=== PATIENT | male | born 1975 | race Caucasian/White ===

== ENCOUNTER 2017-03-22 10:57 | Emergency (ER) | payer OTHER ==
[2017-03-22] MEDS ORDERED: Nitroglycerin 2% Ointment 1 INCH/1 GM Packet ONE (11:18)
[2017-03-22 11:29] LABS: #Eosinphils 0.1 thou/uL (0.0-0.7); #Lymphocytes 1.9 thou/uL (1.20-3.40); #Monocytes 0.5 thou/uL (0.11-0.59); #Neutrophils 4.5 thou/uL (1.40-6.50); %Basophils 0.6 % (0.0-1.0); %Eosinophils 1.9 % (0.0-10.0); %Lymphocytes 26.4 % (21.0-51.0); %Monocytes 6.5 % (0.0-10.0); Hematocrit 52.7 % (42.0-52.0); Mean Platelet Volume 8.5 fL (7.4-10.4)
[2017-03-22 11:31] LABS: PTT 27.1 SEC (22.9-36.1); Prothrombin Time 12.2 SEC (12.0-14.7)
--- NOTE | 2017-03-22 11:39 | RAD ---
AP VIEW OF THE CHEST: INDICATIONS: Chest pain. Left arm tingling. COMPARISON: Prior exam dated 05/13/2010. IMPRESSION: No acute cardiopulmonary abnormality. The examination is not appreciably changed from the comparison examination. POS: [facility]
[2017-03-22 11:52] LABS: ALT (SGPT) 30 U/L (8-55); AST (SGOT) 17 U/L (5-34); Alkaline Phosphatase 101 U/L (40-150); Anion Gap 13 mmol/L (10-20); BUN (Urea Nitrogen) 11 mg/dL (8.9-20.6); Bilirubin, Total 0.4 mg/dL (0.2-1.2); CK (CPK) 61 U/L (30-200); Calc. Creatinine Clearance 0 mL/min (70-130); Calcium 9.7 mg/dL (7.8-10.44); Carbon Dioxide 30 mmol/L (22-29); Chloride 102 mmol/L (98-107); Estimated GFR-MDRD 82; Globulin 3.3 g/dL (2.4-3.5); Lipase 5 U/L (8-78); Protein, Total 7.9 g/dL (6.0-8.3)
[2017-03-22 11:53] LABS: Digoxin Less than 0.15 ng/mL (0.8-2.0)
[2017-03-22 11:58] LABS: Troponin I Less than 0.010 ng/mL (< 0.028)
== END 2017-03-22 13:22 | disposition home or self-care (01) ==
LOC: ERS 10:57
DX: R07.9 Chest pain, unspecified (principal); I10 Essential (primary) hypertension; E03.9 Hypothyroidism, unspecified; E10.9 Type 1 diabetes mellitus without complications; Z79.899 Other long term (current) drug therapy
CPT/HCPCS: 71010; 80053; 80162; 82553; 83690; 84484; 85025; 85610; 85730; 93005

== ENCOUNTER 2017-06-10 16:52 | Inpatient (IN) | payer OTHER ==
[2017-06-10 19:14] LABS: #Lymphocytes 1.4 thou/uL (1.20-3.40); #Monocytes 0.5 thou/uL (0.11-0.59); #Neutrophils 5.9 thou/uL (1.40-6.50); %Basophils 0.1 % (0.0-1.0); %Eosinophils 0.2 % (0.0-10.0); %Lymphocytes 17.7 % (21.0-51.0); %Monocytes 6.9 % (0.0-10.0); %Neutrophils 75.1 % (42.0-75.0); Hemoglobin 16.1 g/dL (14.0-18.0); Mean Corpuscular HGB CONC 34.2 g/dL (32.0-36.0); Mean Corpuscular Hemoglobin 30.5 pg (27.0-31.0); Mean Platelet Volume 9.9 fL (7.4-10.4); Platelet Count 169 thou/uL (130-400); RBC Distribution Width 11.4 % (11.5-14.5); Red Blood Cell (RBC) Count 5.29 mill/uL (4.70-6.10); White Blood Cell (WBC) Count 7.8 thou/uL (4.8-10.8)
[2017-06-10 19:17] LABS: Base Excess-Venous 1.9 mmol/L (-30.0-30.0); Bicarbonate (HCO3v) 26.4 mmol/L (1.0-85.0); Calcium, Ionized 0.96 mmol/L (1.12-1.32); Hemoglobin - Calc 16.6 g/dL (12.0-18.0); Potassium 4.6 mmol/L (3.4-4.7); T. Carbon Dioxide 27.6 mmol/L (1.0-85.0); pH (Venous) 7.427 (7.35-7.45); vO2 Saturation-calc 92.6 % (0.0-100.0)
--- NOTE | 2017-06-10 19:26 | RAD ---
PORTABLE AP CHEST X-RAY 06/10/17 HISTORY: Cough. COMPARISON: 03/22/17. FINDINGS: The cardiac silhouette and pulmonary vasculature are within normal limits for the portable technique of the study. The lungs are clear. Osseous structures are intact. IMPRESSION: No acute cardiopulmonary process. POS: [facility]
[2017-06-10 19:39] LABS: ALT (SGPT) 16 U/L (8-55); AST (SGOT) 12 U/L (5-34); Albumin 3.9 g/dL (3.5-5.0); Alkaline Phosphatase 72 U/L (40-150); Anion Gap 15 mmol/L (10-20); BUN (Urea Nitrogen) 10 mg/dL (8.9-20.6); Bilirubin, Total 0.6 mg/dL (0.2-1.2); Calc. Creatinine Clearance 0 mL/min (70-130); Calcium 8.8 mg/dL (7.8-10.44); Carbon Dioxide 24 mmol/L (22-29); Chloride 102 mmol/L (98-107); Estimated GFR-MDRD Greater than 90; Globulin 3.2 g/dL (2.4-3.5); Glucose 164 mg/dL (70-105); Potassium 3.8 mmol/L (3.5-5.1); Protein, Total 7.1 g/dL (6.0-8.3); Sodium 137 mmol/L (136-145)
[2017-06-10] MEDS ORDERED: Azithromycin 500 MG in Sodium Chloride 0.9% 250 ML 250 ML IVPB SCH (20:30)
[2017-06-10] MEDS ORDERED: Ondansetron HCl/PF 4 MG/2 ML Vial IVP PRN ×2 (21:35→23:54)
[2017-06-10] MEDS ORDERED: Acetaminophen 325 MG TAB PO PRN ×2 (21:35→23:54)
[2017-06-10] MEDS ORDERED: Ondansetron ODT 4 MG TAB SL PRN (21:35)
[2017-06-10 22:20] VITALS: BMI 28.2
[2017-06-10] MEDS ORDERED: Oseltamivir 75 MG CAP PO SCH (23:30)
[2017-06-10] MEDS ORDERED: cefTRIAXone\\ROCEPHIN 1 GM in Sodium Chloride 0.9% 100 ML IVPB SCH (23:45)
[2017-06-10] MEDS ORDERED: HYDROcodone/Acetaminophen 5/325 mg Tablet PO PRN (23:54)
[2017-06-10] MEDS ORDERED: Mag-Al 1200 mg/1200 mg/30 ML UDCUP PO PRN (23:54)
[2017-06-10] MEDS ORDERED: Milk Of Magnesia 30 ML UDCUP PO PRN (23:54)
[2017-06-10] MEDS ORDERED: Senokot 8.6 MG TAB PO PRN (23:54)
[2017-06-10] MEDS ORDERED: HumaLOG 300 UNITS/3 ML VIAL SC PRN ×2 (23:57)
[2017-06-10] MEDS ORDERED: Dextrose 5% in Water 1,000 ML IV PRN (23:57)
[2017-06-10] MEDS ORDERED: Dextrose 50% Abboject 50 ML SYRINGE SLOW IVP PRN (23:57)
[2017-06-11] MEDS: Benzonatate 100 MG CAP PO PRN ×5 (00:26→19:47)
[2017-06-11] MEDS: Sodium Chloride 0.9% 1,000 ML IV SCH ×3 (00:27→19:53)
--- NOTE | 2017-06-11 02:59 | HP ---
DATE OF SERVICE: 06/10/2017 PRIMARY CARE PHYSICIAN: Yuli Gómez MD REASON FOR ADMISSION: Acute bronchitis. HISTORY OF PRESENT ILLNESS: A 41-year-old male with a history of diabetes, hypertension, gastroesoph ageal reflux disease, and hypothyroidism who presented to emergency room for evaluation of fever. Layton mendez reports that in his family, patient's daughter got sick and he was having flu-like illness and subsequently he got sick and he was also experiencing flu-like illness. On Tuesday, he was diagnosed with influenza A and he was started on Tamiflu. Tomorrow morning, he will finish his Tamiflu course. Despite Tamiflu taking, he was having on and off fever. Patient saw his primary care physician aga in a couple of days ago. At that time, patient was given a dose of Rocephin and he was instructed th at if he gets fever, then he needs to go to emergency room. Today, he was having high-grade fever wi th chills, body ache, and headache. He was feeling fatigue and that is why he decided to come to the emergency room for evaluation. In the emergency room, this patient had chest x-ray, which did not s how any acute process and routine blood test was unremarkable. Patient denies any UTI symptoms. He denies any constipation, diarrhea, melena, or hematochezia. He does have dry cough. Patient also has cough with deep breathing. Patient denies any pleurisy. Marci ent denies any chest pain, palpitation, or dizziness. He denies any diarrhea, nausea, or vomiting. He denies any sore throat. He denies any hoarseness of voice. He denies any headache. ALLERGIES: No known drug allergy. CURRENT HOME MEDICATIONS: Synthroid 100 mcg p.o. daily, Tamiflu 75 mg p.o. b.i.d., Diovan 80 mg p.o. daily, Humalog insulin as per sliding scale, Tresiba 30 units subcu daily, Dexilant 60 mg p.o. daily . REVIEW OF SYSTEMS: The following complete review of systems was negative, unless otherwise mentioned in the HPI or below: Constitutional: Weight loss or gain, ability to conduct usual activities. Sk in: Rash, itching. Eyes: Double vision, pain. ENT/Mouth: Nose bleeding, neck stiffness, pain, te nderness. Cardiovascular: Palpitations, dyspnea on exertion, orthopnea. Respiratory: Shortness of breath, wheezing, cough, hemoptysis, fever or night sweats. Gastrointestinal: Poor appetite, abdom inal pain, heartburn, nausea, vomiting, constipation, or diarrhea. Genitourinary: Urgency, frequenc y, dysuria, nocturia. Musculoskeletal: Pain, swelling. Neurologic/Psychiatric: Anxiety, depressio n. Allergy/Immunologic: Skin rash, bleeding tendency. Please my HPI for pertinent positive and neg ative. PAST MEDICAL HISTORY: Diabetes type 2, hypertension, hypothyroidism, gastroesophageal reflux disease . PAST SURGICAL HISTORY: [place] teeth removal, left fifth digit surgery, tonsillectomy, vasectomy, alejandro noidectomy. PAST PSYCHIATRIC HISTORY: Reviewed and negative. SOCIAL HISTORY: Patient lives at home with his . No history of tobacco, alcohol, or illicit ranjana g abuse. FAMILY HISTORY: No strong family history of premature coronary artery disease, stroke, or cancer. EMERGENCY ROOM COURSE: Patient is given Rocephin, azithromycin, IV fluid. PHYSICAL EXAMINATION: VITAL SIGNS: On arrival, blood pressure 113/70, pulse 105, respiratory rate 18, temperature 99.4, sa turation 98% on room air, weight 78.4 kilograms. GENERAL: Patient is currently alert, awake, in no obvious acute distress. HEAD: Normocephalic, atraumatic. EYES: Pupils round, reactive to light. Extraocular muscle intact. ENT: Oropharynx within normal limit. Moist mucous membranes. No oral lesion, no pharyngeal erythem a, no exudate. NECK: Supple. No JVD, no thyromegaly, no carotid bruit, no jugular venous distention. LUNGS: Left-sided few basal rales noted. No wheeze, no rhonchi, no accessory muscles of respiration in use. CARDIAC: S1, S2 regular. No murmur, no gallop, no rub. ABDOMEN: Soft, bowel sounds present, nontender, nondistended. No organomegaly, no mass, no suprapub ic tenderness. BACK: Unremarkable. No CVA tenderness. EXTREMITIES: Upper extremity: Passive movement of all joints are normal. Lower extremities: No ed terra. Good peripheral pulsation. SKIN: No skin rash. HEMATOLOGIC: No lymphadenopathy. NEUROLOGIC: Nonfocal examination. SIGNIFICANT LABORATORY DATA: CBC, WBC 7.8, hemoglobin 16.1, platelet 169,000. VBG, pH 7.42, bicarbo jessica 26.4, CO2 of 40, O2 of 64. BMP, sodium 137, potassium 3.8, chloride 102, carbon dioxide 24, BUN 10, creatinine 0.81. Glucose 164, calcium 8.8. Lactic acid 1.4. LFT, AST 12, ALT 16, alkaline blair sphatase 72, albumin 3.9. ASSESSMENT AND PLAN: 1. Acute bronchitis/early community-acquired pneumonia after influenza. The patient will be given R ocephin and levofloxacin while in hospital, symptomatic treatment for cough with Robitussin and Regine edwige. 2. Gastroesophageal reflux disease. We will continue Pepcid 20 mg p.o. b.i.d. 3. Diabetes type 2. We will continue insulin as per sliding scale per protocol. Diabetic diet will be given and we will continue insulin as per sliding scale. 4. Hypertension. If blood pressure permits, then we will continue valsartan 80 mg p.o. daily. 5. Hypothyroidism. Continue Synthroid 100 mcg p.o. daily. 6. Current history of influenza A. Continue Tamiflu 75 mg p.o. daily, tomorrow morning is a last do se of Tamiflu. If patient remains afebrile, then we will consider discharging him home on p.o. Levaquin therapy. De ep venous thrombosis prophylaxis not needed because we are expecting discharge in 24 hours. Gastroin testinal prophylaxis, Pepcid 20 mg p.o. b.i.d. CODE STATUS: The patient is FULL CODE. The patient is making decision by himself. Disposition plan based on clinical course. We are expecting patient's stay in the hospital 24 hours. Plan of care discussed with the patient and family member at bedside.
[2017-06-11 04:48] LABS: #Lymphocytes 1.9 thou/uL (1.20-3.40); #Monocytes 0.5 thou/uL (0.11-0.59); #Neutrophils 4.4 thou/uL (1.40-6.50); %Basophils 0.5 % (0.0-1.0); %Eosinophils 0.7 % (0.0-10.0); %Lymphocytes 27.3 % (21.0-51.0); %Monocytes 7.7 % (0.0-10.0); %Neutrophils 63.8 % (42.0-75.0); Hemoglobin 13.9 g/dL (14.0-18.0); Mean Corpuscular HGB CONC 34.7 g/dL (32.0-36.0); Mean Corpuscular Hemoglobin 30.9 pg (27.0-31.0); Mean Corpuscular Volume 89.2 fl (80.0-94.0); Mean Platelet Volume 9.5 fL (7.4-10.4); Platelet Count 148 thou/uL (130-400); RBC Distribution Width 11.1 % (11.5-14.5); Red Blood Cell (RBC) Count 4.48 mill/uL (4.70-6.10); White Blood Cell (WBC) Count 6.9 thou/uL (4.8-10.8)
[2017-06-11 05:08] LABS: Anion Gap 9 mmol/L (10-20); BUN (Urea Nitrogen) 7 mg/dL (8.9-20.6); Calc. Creatinine Clearance 139 mL/min (70-130); Carbon Dioxide 27 mmol/L (22-29); Chloride 105 mmol/L (98-107); Estimated GFR-MDRD Greater than 90; Glucose 163 mg/dL (70-105); Potassium 3.3 mmol/L (3.5-5.1); Sodium 138 mmol/L (136-145)
[2017-06-11] MEDS: Levothyroxine Sodium 100 MCG TAB PO SCH (05:53)
[2017-06-11] MEDS: Valsartan 80 MG TAB PO SCH (08:33)
[2017-06-11] MEDS: INSULIN DEGLUDEC 30 UNIT SC SCH (08:34)
[2017-06-11] MEDS ORDERED: Oseltamivir 75 MG CAP PO SCH (09:00)
[2017-06-11] MEDS ORDERED: Famotidine 20 MG TAB PO SCH (09:00)
[2017-06-11] MEDS ORDERED: HumaLOG 300 UNITS/3 ML VIAL SC PRN (13:57)
[2017-06-11] MEDS: HUMALOG SC PRN ×2 (16:21→19:48)
--- NOTE | 2017-06-11 18:06 | PDOC.PN ---
- Subjective Encounter Start Date: 06/11/17 Encounter Start Time: 10:00 Patient seen and examined. Productive cough with intermittent wheezing. Fever + . No overnight events - Objective Resuscitation Status: Resuscitation Status FULL:Full Resuscitation MAR Reviewed: Yes Vital Signs & Weight: Vital Signs (12 hours) Temp Pulse Resp BP Pulse Ox 06/11/17 11:20 98.7 F 88 16 95 06/11/17 11:19 98.7 F 88 16 127/82 95 06/11/17 08:30 99.2 F 87 16 06/11/17 07:12 99.2 F 87 16 124/70 95 Weight Weight 172 lb 5 oz I&O: 06/10/17 06/11/17 06/12/17 06:59 06:59 06:59 Intake Total 1090 1685 Output Total 500 Balance 1090 1185 Result Diagrams: 06/11/17 04:10 06/11/17 04:10 Additional Labs: Accuchecks 06/11/17 06/11/17 06/11/17 15:42 11:54 05:53 POC Glucose 217 H 92 133 H Selected Entries 06/10/17 06/10/17 06/10/17 21:26 22:20 23:41 Temperature 100.8 F H 100.8 F H 100.6 F H 06/11/17 03:26 Temperature 99.9 F H Radiology Reviewed by me: Yes (CXR - no definite infiltrate) EKG Reviewed by me: Yes (Tele SR) Phys Exam - Physical Examination Constitutional: NAD (ill appearing) Bibasilar rales/rhonchi. Scat wheezing Cardiovascular: RRR, no rub Gastrointestinal: soft, non-tender, positive bowel sounds Musculoskeletal: no edema Neurological: moves all 4 limbs Dx/Plan - Plan DVT proph w/SCDs IMPRESSION: 1. Sepsis due to suspected Pneumonia ?Pneumococcal 2. Recent Influenza A infection - Tamiflu completed this morning 3. DM2 4. GERD 5. Hypothyroidism 6. Hypokalemia PLAN: * Cont Levaquin/Rocephin * Resp viral PCR pending * AM labs * CXR in AM * Cont insulin with sliding scale * Cont other meds as below * Replace Potassium * Change to inpt * Cont IVF Review of Systems - Review of Systems Constitutional: fever, weakness Cardiovascular: negative: chest pain, palpitations, orthopnea, paroxysmal nocturnal dyspnea, edema, light headedness Gastrointestinal: negative: Nausea, Vomiting, Abdominal Pain, Diarrhea, Constipation, Melena, Hematochezia - Medications/Allergies Allergies/Adverse Reactions: Allergies Allergy/AdvReac Type Severity Reaction Status Date / Time No Known Drug Allergies Allergy Verified 06/10/17 22:14 Medications: Current Medications Acetaminophen (Tylenol) 650 mg PO Q4H PRN PRN Reason: Headache/Fever or Pain Hydrocodone Bitart/Acetaminophen ([place] 5/325) 1 tab PO Q4H PRN PRN Reason: Moderate Pain (4-6) Al Hydroxide/Mg Hydroxide (Maalox) 30 ml PO Q6H PRN PRN Reason: Heartburn or Indigestion Benzonatate (Tessalon) 100 mg PO Q4H PRN PRN Reason: Cough Last Admin: 06/11/17 15:53 Dose: 100 mg Dextrose/Water (Dextrose 50%) 25 gm SLOW IVP PRN PRN PRN Reason: Hypoglycemia Glucagon (Glucagon) 1 mg IM PRN PRN PRN Reason: Hypoglycemia Guaifenesin/Dextromethorphan (Robitussin Dm) 15 ml PO Q4H PRN PRN Reason: Cough Levofloxacin 500 mg/ Device 100 mls @ 100 mls/hr IVPB 0900 [facility] Last Admin: 06/11/17 08:35 Dose: 100 mls Sodium Chloride (Normal Saline 0.9%) 1,000 mls @ 100 mls/hr IV .Q10H [facility] Last Admin: 06/11/17 10:20 Dose: 1,000 mls Dextrose/Water (D5w) 1,000 mls @ 0 mls/hr IV .Q0M PRN; As Directed PRN Reason: Hypoglycemia Ceftriaxone Sodium 1 gm/ (Syringe 0.4 ml/ Sterile Water) 10 mls @ 120 mls/hr SLOW IVP 2000 [facility] Levothyroxine Sodium (Synthroid) 100 mcg PO 0600 [facility] Last Admin: 06/11/17 05:53 Dose: 100 mcg Magnesium Hydroxide (Milk Of Magnesium) 30 ml PO DAILYPRN PRN PRN Reason: Constipation Ondansetron HCl (Zofran) 4 mg IVP Q6H PRN PRN Reason: Nausea/Vomiting (Insulin Degludec [ Tresiba Flextouch U- 100] 30 Unit) 0 each SC DAILY [facility] Last Admin: 06/11/17 08:34 Dose: 1 each Dexilant 0 each PO DAILY [facility] Humalog Pen Patient' (s Home Medication) 0 each SC PRN PRN PRN Reason: PERSONAL SLIDING SCALE Last Admin: 06/11/17 16:21 Dose: 1 each Senna (Senokot) 2 tab PO HSPRN PRN PRN Reason: Constipation Valsartan (Diovan) 80 mg PO DAILY [facility] Last Admin: 06/11/17 08:33 Dose: 80 mg
[2017-06-11] MEDS: cefTRIAXone\\ROCEPHIN 1 GM, Syringe 0.4 ML in Sterile Water 9.6 ML SLOW IVP SCH (19:47)
[2017-06-11] MEDS: Guaifenesin DM 100-10/5 ML UDCUP PO PRN (19:47)
[2017-06-12 04:53] LABS: #Basophils 0.1 thou/uL (0.0-0.2); #Eosinphils 0.1 thou/uL (0.0-0.7); #Lymphocytes 1.7 thou/uL (1.20-3.40); #Monocytes 0.5 thou/uL (0.11-0.59); #Neutrophils 2.4 thou/uL (1.40-6.50); %Basophils 1.1 % (0.0-1.0); %Eosinophils 2.4 % (0.0-10.0); %Lymphocytes 36.2 % (21.0-51.0); %Monocytes 9.9 % (0.0-10.0); %Neutrophils 50.5 % (42.0-75.0); Hemoglobin 13.8 g/dL (14.0-18.0); Mean Corpuscular HGB CONC 34.6 g/dL (32.0-36.0); Mean Corpuscular Hemoglobin 31.8 pg (27.0-31.0); Mean Corpuscular Volume 91.9 fl (80.0-94.0); Platelet Count 151 thou/uL (130-400); Red Blood Cell (RBC) Count 4.36 mill/uL (4.70-6.10); White Blood Cell (WBC) Count 4.8 thou/uL (4.8-10.8)
[2017-06-12 05:12] LABS: ALT (SGPT) 17 U/L (8-55); AST (SGOT) 19 U/L (5-34); Albumin 3.3 g/dL (3.5-5.0); Alkaline Phosphatase 68 U/L (40-150); Anion Gap 10 mmol/L (10-20); BUN (Urea Nitrogen) 7 mg/dL (8.9-20.6); Bilirubin, Total 0.3 mg/dL (0.2-1.2); Calc. Creatinine Clearance 121 mL/min (70-130); Calcium 8.2 mg/dL (7.8-10.44); Carbon Dioxide 27 mmol/L (22-29); Chloride 107 mmol/L (98-107); Estimated GFR-MDRD Greater than 90; Globulin 2.8 g/dL (2.4-3.5); Glucose 269 mg/dL (70-105); Magnesium 2.1 mg/dL (1.6-2.6); Potassium 4.1 mmol/L (3.5-5.1); Protein, Total 6.1 g/dL (6.0-8.3); Sodium 140 mmol/L (136-145)
[2017-06-12] MEDS: Levothyroxine Sodium 100 MCG TAB PO SCH (05:29)
[2017-06-12] MEDS: Sodium Chloride 0.9% 1,000 ML IV SCH (05:29)
[2017-06-12] MEDS: Guaifenesin DM 100-10/5 ML UDCUP PO PRN ×3 (07:55→23:32)
[2017-06-12] MEDS: INSULIN DEGLUDEC 30 UNIT SC SCH (07:55)
[2017-06-12] MEDS: DEXILANT PO SCH (07:55)
[2017-06-12] MEDS: Benzonatate 100 MG CAP PO PRN ×3 (07:55→23:32)
[2017-06-12] MEDS: Potassium Chloride 10 MEQ TAB PO SCH (07:56)
[2017-06-12] MEDS: Saccharomyces boulardii 250 MG CAP PO SCH (07:56)
[2017-06-12] MEDS: Valsartan 80 MG TAB PO SCH (08:40)
--- NOTE | 2017-06-12 12:11 | RAD ---
PA AND LATERAL OF THE CHEST: INDICATION: Concern for pneumonia. COMPARISON: Prior exam dated 06/10/17. FINDINGS: No airspace consolidation is noted. Cardiomediastinal silhouette is within normal limits. No acute osseous abnormality is noted. IMPRESSION: No acute cardiopulmonary abnormality. POS: [facility]
--- NOTE | 2017-06-12 12:25 | PDOC.PN ---
- Subjective Encounter Start Date: 06/12/17 Encounter Start Time: 12:23 Subjective: feels better but weak and still w cough,no fever/chills/SOB - Objective Resuscitation Status: Resuscitation Status FULL:Full Resuscitation MAR Reviewed: Yes Vital Signs & Weight: Vital Signs (12 hours) Temp Pulse Resp BP Pulse Ox 06/12/17 12:10 98.2 F 86 18 134/88 94 L 06/12/17 08:00 98.3 F 78 18 131/85 94 L 06/12/17 04:00 98.3 F 74 16 135/86 96 Weight Weight 172 lb 5 oz I&O: 06/11/17 06/12/17 06/13/17 06:59 06:59 06:59 Intake Total 1090 1685 Output Total 500 Balance 1090 1185 Result Diagrams: 06/12/17 03:29 06/12/17 03:29 Additional Labs: Accuchecks 06/12/17 06/11/17 06/11/17 04:31 19:29 15:42 POC Glucose 193 H 296 H 217 H 06/11/17 11:54 POC Glucose 92 Microbiology 06/11/17 00:32 Nasopharyngeal swab Respiratory Virus Panel (PCR) ([facility]ARCELO) - Final 06/10/17 19:03 Venous blood - Left Arm Blood Culture - Preliminary Specimen has been received and culture in progress. No Growth to date. 06/10/17 18:56 Venous blood - Right Arm Blood Culture - Preliminary Specimen has been received and culture in progress. No Growth to date. Phys Exam - Physical Examination Constitutional: NAD HEENT: PERRLA, moist MMs, sclera anicteric, oral pharynx no lesions Neck: no nodes, no JVD, supple, full ROM Respiratory: no wheezing, no rales, no rhonchi, clear to auscultation bilateral Cardiovascular: RRR, no significant murmur Gastrointestinal: soft, non-tender, no distention, positive bowel sounds Musculoskeletal: no edema, pulses present Neurological: non-focal, normal sensation, moves all 4 limbs Psychiatric: normal affect, A&O x 3 Skin: no rash Dx/Plan (1) Influenza A Code(s): J10.1 - FLU DUE TO OTH IDENT INFLUENZA VIRUS W OTH RESP MANIFEST Status: Acute Comment: s/p tamiflu X5 days (2) Sepsis Code(s): A41.9 - SEPSIS, UNSPECIFIED ORGANISM Status: Acute (3) Hypothyroid Code(s): E03.9 - HYPOTHYROIDISM, UNSPECIFIED Status: Chronic (4) GERD (gastroesophageal reflux disease) Code(s): K21.9 - GASTRO-ESOPHAGEAL REFLUX DISEASE WITHOUT ESOPHAGITIS Status: Chronic (5) DM2 (diabetes mellitus, type 2) Status: Chronic - Plan plan discussed w/ family, out of bed/ambulate, DVT proph w/SCDs DC IVF.encourage ambulation,oral intake -: CXR does not show PNA.symptoma likley d/t secd bacterial bronchitis -: cont IV ABx for 1 more day.likley home tomorrow. -: check stills for C.Diff * . Review of Systems - Review of Systems Constitutional: weakness. negative: fever, chills, sweats, malaise, other Eyes: negative: Pain, Vision Change, Conjunctivae Inflammation, Eyelid Inflammation, Redness, Other ENT: negative: Ear Pain, Ear Discharge, Nose Pain, Nose Discharge, Nose Congestion, Mouth Pain, Mouth Swelling, Throat Pain, Throat Swelling, Other Respiratory: Cough. negative: Dry, Shortness of Breath, Hemoptysis, SOB with Excertion, Pleuritic Pain, Sputum, Wheezing Cardiovascular: negative: chest pain, palpitations, orthopnea, paroxysmal nocturnal dyspnea, edema, light headedness, other Gastrointestinal: negative: Nausea, Vomiting, Abdominal Pain, Diarrhea, Constipation, Melena, Hematochezia, Other Genitourinary: negative: Dysuria, Frequency, Incontinence, Hematuria, Retention , Other Musculoskeletal: negative: Neck Pain, Shoulder Pain, Arm Pain, Back Pain, Hand Pain, Leg Pain, Foot Pain, Other Skin: negative: Rash, Lesions, Ko, Bruising, Other Neurological: negative: Weakness, Numbness, Incoordination, Change in Speech, Confusion, Seizures, Other - Medications/Allergies Allergies/Adverse Reactions: Allergies Allergy/AdvReac Type Severity Reaction Status Date / Time No Known Drug Allergies Allergy Verified 06/10/17 22:14 Medications: Current Medications Acetaminophen (Tylenol) 650 mg PO Q4H PRN PRN Reason: Headache/Fever or Pain Hydrocodone Bitart/Acetaminophen ([place] 5/325) 1 tab PO Q4H PRN PRN Reason: Moderate Pain (4-6) Al Hydroxide/Mg Hydroxide (Maalox) 30 ml PO Q6H PRN PRN Reason: Heartburn or Indigestion Albuterol/Ipratropium (Duoneb) 3 ml NEB [id number] PRN PRN Reason: SOB &/or Wheezing Benzonatate (Tessalon) 100 mg PO Q4H PRN PRN Reason: Cough Last Admin: 06/12/17 07:55 Dose: 100 mg Dextrose/Water (Dextrose 50%) 25 gm SLOW IVP PRN PRN PRN Reason: Hypoglycemia Glucagon (Glucagon) 1 mg IM PRN PRN PRN Reason: Hypoglycemia Guaifenesin/Dextromethorphan (Robitussin Dm) 15 ml PO Q4H PRN PRN Reason: Cough Last Admin: 06/12/17 07:55 Dose: 15 ml Levofloxacin 500 mg/ Device 100 mls @ 100 mls/hr IVPB 0900 [facility] Last Admin: 06/12/17 07:56 Dose: 100 mls Dextrose/Water (D5w) 1,000 mls @ 0 mls/hr IV .Q0M PRN; As Directed PRN Reason: Hypoglycemia Ceftriaxone Sodium 1 gm/ (Syringe 0.4 ml/ Sterile Water) 10 mls @ 120 mls/hr SLOW IVP 2000 [facility] Last Admin: 06/11/17 19:47 Dose: 10 mls Levothyroxine Sodium (Synthroid) 100 mcg PO 0600 [facility] Last Admin: 06/12/17 05:29 Dose: 100 mcg Magnesium Hydroxide (Milk Of Magnesium) 30 ml PO DAILYPRN PRN PRN Reason: Constipation Ondansetron HCl (Zofran) 4 mg IVP Q6H PRN PRN Reason: Nausea/Vomiting (Insulin Degludec [ Tresiba Flextouch U- 100] 30 Unit) 0 each SC DAILY [facility] Last Admin: 06/12/17 07:55 Dose: 1 each Dexilant 0 each PO DAILY [facility] Last Admin: 06/12/17 07:55 Dose: 1 each Humalog Pen Patient' (s Home Medication) 0 each SC PRN PRN PRN Reason: PERSONAL SLIDING SCALE Last Admin: 06/11/17 19:48 Dose: 1 each Potassium Chloride (Klor-Con 10) 10 meq PO QAM-WM [facility] Last Admin: 06/12/17 07:56 Dose: 10 meq Saccharomyces Boulardii (Florastor) 250 mg PO DAILY [facility] Last Admin: 06/12/17 07:56 Dose: 250 mg Senna (Senokot) 2 tab PO HSPRN PRN PRN Reason: Constipation Valsartan (Diovan) 80 mg PO DAILY [facility] Last Admin: 06/12/17 08:40 Dose: 80 mg
[2017-06-12] MEDS: HUMALOG SC PRN ×2 (14:15→16:50)
[2017-06-12] MEDS: cefTRIAXone\\ROCEPHIN 1 GM, Syringe 0.4 ML in Sterile Water 9.6 ML SLOW IVP SCH (19:46)
[2017-06-13] MEDS: Levothyroxine Sodium 100 MCG TAB PO SCH (05:32)
[2017-06-13] MEDS: DEXILANT PO SCH (08:25)
[2017-06-13] MEDS: Potassium Chloride 10 MEQ TAB PO SCH (08:26)
[2017-06-13] MEDS: INSULIN DEGLUDEC 30 UNIT SC SCH (08:26)
[2017-06-13] MEDS: Saccharomyces boulardii 250 MG CAP PO SCH (08:26)
[2017-06-13] MEDS: Valsartan 80 MG TAB PO SCH (08:28)
[2017-06-13 08:34] VITALS: BP 124/85; TEMP 98
[2017-06-13] MEDS: Benzonatate 100 MG CAP PO PRN (11:03)
[2017-06-13 12:14] LABS: %CD4 (Helper/Inducer) 45.8 % (30.8-58.5); Absolute CD4 550 /uL (359-1519); Lymphocytes/Gated Cell Count 1.2 x10E3/uL (0.7-3.1); Total Lymphocyte 27 % (Not Estab.); WBC Total Count 4.4 x10E3/uL (3.4-10.8)
--- NOTE | 2017-06-13 14:37 | DIS ---
DATE OF ADMISSION: 06/11/2017 DATE OF DISCHARGE: 06/13/2017 CONDITION AT THE TIME OF DISCHARGE: Stable and improved. DISCHARGE DISPOSITION: Home. PRIMARY CARE PHYSICIAN: Yuli Gómez MD. DISCHARGE DIAGNOSES: 1. Acute bronchitis post-influenza. 2. Sepsis secondary to influenza A. 3. Hypothyroidism. 4. Diabetes mellitus. 5. Gastroesophageal reflux disease. DISCHARGE MEDICATIONS: Levofloxacin 500 mg p.o. daily for 5 days, Florastor 250 mg p.o. daily for 10 days, and Mucinex 600 mg p.o. b.i.d. for 5 days. Resume home medications as follows: Levothyroxine 100 mcg daily, Tresiba 30 units daily, Dexilant 60 mg daily, Diovan 80 mg daily, and Humalog insulin sliding scale three times with meals. HISTORY OF PRESENTING ILLNESS: Mr. Patel is a 41-year-old male with past medical history of diab etes, hypertension, and GERD, who presented to the emergency room for complaints of fever. Prior to presentation, he was diagnosed with influenza A and was started on Tamiflu and he is almost done with his Tamiflu on presentation, but still having on and off fever and not feeling well. He was feeling fatigued and came to the emergency room. He did not have any evidence of pneumonia on the chest x-r ay upon presentation and routine blood tests were unremarkable. There was concern of some pneumonia, clinically, so he was admitted for IV antibiotics. Please see admission history and physical for fu rther details. HOSPITAL COURSE: The patient did remarkable for the rest of his hospitalization. He recovered quick ly. Chest x-ray was repeated and was once again unremarkable without any evidence of edema, effusion , or pneumonia. His Tamiflu was finished and he was transitioned from IV to oral antibiotics. Respi ratory viral PCR was repeated, it was once again positive for influenza A. His Clostridium difficile was checked because of some concern for loose stool, which was negative. By the time of discharge, he is back to his baseline and has no fever and is clinically better. He w as seen and examined prior to discharge. PHYSICAL EXAMINATION: His physical exam this morning include, VITAL SIGNS: Temperature 98, pulse of 86, respirations 16, saturating 96% on room air, blood pressur e 124/85. GENERAL: No acute distress, awake, alert, oriented x3. CHEST: Clear to auscultation without any wheezing, rales or rhonchi. Rate and rhythm is regular wit hout any murmur, rubs, or gallops. LABORATORY DATA: CBC shows WBCs at 4.8, hemoglobin 13.8, platelet count of 151. Serum chemistries s how blood sugar of 173, otherwise unremarkable. His lactic acid upon presentation was 1.4 and his CD 4 count is 550. He will follow up with his primary care physician in 5-7 days.
== END 2017-06-13 12:55 | disposition home or self-care (01) | DRG 872 ==
LOC: ERS 16:52 → 2SW 19:36 → OBSVTOIN 19:36 → T4-B 06-11 11:11 → T4-A 06-11 11:20
PROVIDERS: ADMIT Internal Medicine; ATTEND Internal Medicine
DX: A41.89 Other specified sepsis (principal); E03.9 Hypothyroidism, unspecified; J10.1 Influenza due to other identified influenza virus with other respiratory manifestations; J20.9 Acute bronchitis, unspecified; E11.9 Type 2 diabetes mellitus without complications; K21.9 Gastro-esophageal reflux disease without esophagitis; Z79.4 Long term (current) use of insulin; I10 Essential (primary) hypertension; E87.6 Hypokalemia
CPT/HCPCS: 36415; 36416; 71045; 71046; 80048; 80053; 82330; 82803; 83605; 83735; 85007; 85025; 85027; 85048; 86361; 87040; 87324; 87449; 87633; 96361; 96374; 96375; A4216; J0456; J0696; J1956; J7050

== ENCOUNTER 2017-11-22 18:29 | Emergency (ER) | payer OTHER ==
[2017-11-22 19:07] LABS: #Eosinphils 0.1 thou/uL (0.0-0.7); #Lymphocytes 1.3 thou/uL (1.20-3.40); #Monocytes 0.7 thou/uL (0.11-0.59); #Neutrophils 2.6 thou/uL (1.40-6.50); %Eosinophils 2.7 % (0.0-10.0); %Monocytes 14.6 % (0.0-10.0); %Neutrophils 54.7 % (42.0-75.0); Hemoglobin 15.9 g/dL (14.0-18.0); Mean Corpuscular Hemoglobin 29.2 pg (27.0-31.0); Mean Corpuscular Volume 91.1 fL (78.0-98.0); Mean Platelet Volume 8.7 fL (7.4-10.4); Platelet Count 191 thou/uL (130-400); Red Blood Cell (RBC) Count 5.45 mill/uL (4.70-6.10); White Blood Cell (WBC) Count 4.7 thou/uL (4.8-10.8)
[2017-11-22 19:11] LABS: Base Excess-Venous 2.1 mmol/L (0 (+/- 2.5)); Bicarbonate (HCO3v) 27.3 mmol/L (1.0-85.0); Calcium, Ionized 1.02 mmol/L (1.12-1.32); Hemoglobin - Calc 17.6 g/dL (12.0-18.0); O2 Tension (PvO2) 120.2 mmHg (35.0-45.0); Potassium 3.8 mmol/L (3.4-4.7); T. Carbon Dioxide 28.6 mmol/L (1.0-85.0); pH (Venous) 7.411 (7.35-7.45); vO2 Saturation-calc 98.7 % (94-98)
[2017-11-22 19:35] LABS: ALT (SGPT) 33 U/L (8-55); AST (SGOT) 23 U/L (5-34); Albumin 4.1 g/dL (3.5-5.0); Alkaline Phosphatase 97 U/L (40-150); Anion Gap 14 mmol/L (10-20); BUN (Urea Nitrogen) 9 mg/dL (8.9-20.6); Bilirubin, Total 0.7 mg/dL (0.2-1.2); Calc. Creatinine Clearance 0 mL/min (70-130); Calcium 9.1 mg/dL (7.8-10.44); Carbon Dioxide 25 mmol/L (22-29); Chloride 98 mmol/L (98-107); Estimated GFR-MDRD 70; Globulin 3.2 g/dL (2.4-3.5); Glucose 336 mg/dL (70-105); Magnesium 2.3 mg/dL (1.6-2.6); Phosphorus 3.5 mg/dL (2.3-4.7); Potassium 3.8 mmol/L (3.5-5.1); Protein, Total 7.3 g/dL (6.0-8.3); Sodium 133 mmol/L (136-145)
--- NOTE | 2017-11-22 19:42 | RAD ---
FRONTAL VIEW CHEST: INDICATIONS: Cough. COMPARISON: 06/12/2017 FINDINGS: The cardiac silhouette is within normal limits in size. There is no lobar consolidation or effusion. No discrete pneumothorax. IMPRESSION: Stable chest. POS: [facility]
== END 2017-11-22 22:08 | disposition home or self-care (01) ==
LOC: ERS 18:29
DX: E10.65 Type 1 diabetes mellitus with hyperglycemia (principal); I10 Essential (primary) hypertension; E03.9 Hypothyroidism, unspecified; Z79.899 Other long term (current) drug therapy
CPT/HCPCS: 36416; 71045; 80053; 82010; 82330; 82803; 83605; 83735; 84100; 85025; 96360; 96361

== ENCOUNTER 2018-07-08 23:56 | Emergency (ER) | payer OTHER | END 2018-07-09 01:40 | disposition home or self-care (01) | LOC: ERS 23:56 | DX: J02.9 Acute pharyngitis, unspecified (principal); R09.82 Postnasal drip; I10 Essential (primary) hypertension; E10.9 Type 1 diabetes mellitus without complications; Z79.899 Other long term (current) drug therapy | CPT/HCPCS: 87081; 87430; 99283 ==

== ENCOUNTER 2018-07-26 10:23 | Outpatient (CLI) | payer OTHER ==
--- NOTE | 2018-07-26 11:48 | MRI ---
MRI OF LEFT KNEE PERFORMED WITHOUT CONTRAST ENHANCEMENT: History: Patient fell in April. Pain in left knee. FINDINGS: There is marked increased signal change within the posterior cruciate ligament, consistent with a hig h grade tear. Given the date of the injury, this could indicate that this is a complete tear with sca rring or granulation tissue which has formed causing a very thickened appearance to the PCL. The ante rior cruciate ligament is intact. There is some increased intrameniscal signal change seen within the posterior horn of the medial meni scus, but this does not extend to the articular surface and is consistent with some internal degenera tion. The lateral meniscus has a normal shape and appearance. The medial and lateral collateral ligaments and ileotibial band regions are unremarkable. The patellar articular cartilage is intact. There is some increased signal change associated with the lateral facet articular cartilage which would suggest some mild chondromalacia change. There could b e a very small fissure involving the lateral facet articular cartilage, less than 50% of the thicknes s of the cartilage. Small medial patellar plaque is present. Medial as well as lateral patellar retin aculum appear intact and the quadriceps and patellar tendons are normal. There is edema change within Hoffa's fat pad, specifically, just inferior to the patella along the lateral side, which would be c ompatible with patellar tendon lateral femoral condyle friction syndrome which would indicate underly ing patellar tracking abnormality. IMPRESSION: 1. High grade tear of the posterior cruciate ligament, very thickened in appearance with amorphous si gnal change within the substance. Given the somewhat chronic nature of the injury, some of this is pr obably related to scarring and granulation tissue. 2. No evidence of meniscal injury. 3. Minimal chondromalacia changes in the lateral side of the patella. Edema change within Hoffa's fat pad would suggest underlying patellar tracking abnormality. POS: [facility]
== END 2018-07-26 10:24 | disposition home or self-care (01) ==
LOC: TBSIIMAG 10:23
PROVIDERS: ATTEND Family Medicine
DX: M12.562 Traumatic arthropathy, left knee (principal); M25.562 Pain in left knee; R29.898 Other symptoms and signs involving the musculoskeletal system; S83.522A Sprain of posterior cruciate ligament of left knee, initial encounter; M22.42 Chondromalacia patellae, left knee